=== PATIENT | female | born 2000 | race Asian ===

== ENCOUNTER 2024-02-18 17:32 | Emergency (ER) | payer SELFPAY ==
[2024-02-18 17:37] VITALS: BP 168/100
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
[2024-02-18] MEDS: ADACEL 0.5 ML IM (19:18)
== END 2024-02-18 19:37 | disposition home or self-care (01) ==
LOC: EMR 17:32
PROVIDERS: EMERGENCY PHYSICIAN Emergency Medicine; FAMILY PHYSICIAN Nurse Practitioner Family
DX: S31.821A Laceration without foreign body of left buttock, initial encounter (principal); S70.312A Abrasion, left thigh, initial encounter; S70.311A Abrasion, right thigh, initial encounter; V49.59XA Passenger injured in collision with other motor vehicles in traffic accident, initial encounter; J45.909 Unspecified asthma, uncomplicated; G47.30 Sleep apnea, unspecified; R73.03 Prediabetes; Z23 Encounter for immunization
CPT/HCPCS: 90471; 99284; 71046; 71120; 73630; 90715